=== PATIENT | male | born 1945 ===

== ENCOUNTER 2022-09-23 13:33 | Emergency (ER) | payer MEDICARE, SELFPAY ==
[2022-09-23] VITALS (11 sets, daily range): BP systolic 123–151; BP diastolic 55–99; PULSE 78–96; RESP 13–19; TEMP 36.4; O2SAT 96–99
--- NOTE | ~2022-09-23 | XR_ITS ---
EXAMINATION: XR chest 1V portable INDICATION: Dyspnea TECHNIQUE: Portable AP chest at 1434 hours COMPARISON: None available FINDINGS: There is mild atelectasis of the lung bases. No pleural effusion or pneumothorax. The heart size is normal. Median sternotomy wires and mediastinal surgical clips are seen, likely from prior c oronary artery bypass grafting. IMPRESSION: 1. Mild atelectasis of the lung bases. Reviewed, dictated and finalized at location A. [facility]
--- NOTE | 2022-09-23 13:39 | ECG_ITS ---
Measurements Intervals Outing Rate: 87 P: -77 NH: 163 QRS: 8 QRSD: 96 T: -6 QT: 397 QTc: 478 Interpretive Statements SINUS RHYTHM ST DEVIATION AND MODERATE T-WAVE ABNORMALITY, CONSIDER ANTERIOR ISCHEMIA [-0.1+ mV T WAVE IN V3/V4] NO PREVIOUS ECG AVAILABLE FOR COMPARISON Electronically Signed On 09-23-2022 16:10:04 FORESTRY HUNTER by Ham Ybarra M.D.
--- NOTE | 2022-09-23 14:25 | ED.GENADULT ---
HPI - General Adult General Chief complaint: Weakness Stated complaint: confusion X1 month, Time Seen by Provider: 09/23/22 13:56 History of Present Illness HPI narrative: 76-year-old male with past medical history of CAD status post CABG, CVA presents to our department for evaluation of 2 months of intermittent shortness of breath and confusion. Patient states that at times he feels short of breath at times feels confused there are no aggravating or alleviating factors. He has not experienced any chest pain. Unfortunately this is the first time patient has come to our hospital and we have no prior records for him. He is under if there is an exertional component to his symptoms. Patient is compliant with his medication regimen and came to our facility when there was too long of a wait at the hospital as he normally frequents. Related Data Allergies Allergy/AdvReac Type Severity Reaction Status Date / Time metformin Allergy Nausea and Verified 09/23/22 13:34 Vomiting Review of Systems Review of Systems: CONSTITUTIONAL: Denies fever, chills, or sweats. EYES: Denies visual changes, redness, or discharge. ENT: Denies rhinorrhea, congestion, sore throat, or otalgia. CARDIOVASCULAR: Denies chest pain, palpitations, or edema. RESPIRATORY: Denies cough or dyspnea. GASTROINTESTINAL: Denies abdominal pain, nausea, vomiting, or diarrhea. GENITOURINARY: Denies dysuria or hematuria. SKIN: Denies rash or itching. MUSCULOSKELETAL: Denies back pain, joint pain, or myalgia. NEUROLOGIC: Denies headache, numbness, or weakness. PSYCHIATRIC: Denies anxiety or depression. [facility] Family History Family History Father Asthma Heart disease Mother COPD (chronic obstructive pulmonary disease) Cancer Social History Social History Smoking status: Former smoker Additional smoking assessment comments: quit 13 years ago Exam Narrative: GENERAL: Well-appearing, well-nourished, and in no acute distress. Cachectic HEAD: Normocephalic, atraumatic. EYES: PERRLA and EOMI. ENT: Nares clear, no rhinorrhea or epistaxis. Mucous membranes moist. NECK: Supple. CHEST: Clear to auscultation. No respiratory distress. HEART: Regular rate and rhythm. No murmur heard. Normal peripheral pulses. ABDOMEN: Soft, nontender, nondistended, normal active bowel sounds. EXTREMITIES: Normal range of motion. No edema. SKIN: Warm, dry, no rash. NEURO: No focal deficits. Alert and oriented x3. PSYCH: Normal mood and affect. Course Vital Signs Vital signs: Vital Signs Temperature 97.6 F 09/23/22 13:43 Pulse Rate 95 09/23/22 13:43 Respiratory Rate 14 09/23/22 13:43 Blood Pressure 143/99 H 09/23/22 13:43 Pulse Oximetry 97 09/23/22 13:43 Oxygen Delivery Nasal Cannula 09/23/22 13:43 Oxygen Flow Rate 4.0 09/23/22 13:43 Temperature 97.6 F 09/23/22 13:43 Pulse Rate 78 09/23/22 17:42 Respiratory Rate 18 09/23/22 16:31 Blood Pressure 131/88 09/23/22 16:31 Pulse Oximetry 96 09/23/22 16:31 Oxygen Delivery Room Air 09/23/22 14:12 Oxygen Flow Rate 4.0 09/23/22 13:43 Medical Decision Making MDM Narrative Medical decision making narrative: Cardiac work-up initiated upon arrival. is informing that their main reason for the visit is patient's intermittent confusion at home and that she does not know where to go for help. Patient states intermittent shortness of breath that is not exertional in nature. He sees a print journalist regularly at outside hospital and the last visit was about a month ago. Patient and have been informed that there are no further cardiology interventions possible as he is out of spare parts . I have informed him and his of the elevated troponin as well as EKG changes but they are in agreement that they would prefer to go home and follow-up with her print journalist. Case
[2022-09-23 14:52] LABS: Anion Gap 12 mmol/L (8-16); Blood Urea Nitrogen 20 mg/dL (9-20); Calcium 9.2 mg/dL (8.4-10.2); Carbon Dioxide 22 mmol/L (22-30); Chloride 109 mmol/L (98-107); Estimated Glomerular Filt Rate 42; Glucose 147 mg/dL (65-110); Potassium 3.7 mmol/L (3.4-5.0); Sodium 143 mmol/L (137-145)
[2022-09-23 14:54] LABS: Basophils Percent Auto 0.4 % (0.2-1.2); Hemoglobin 13.6 g/dL (14.0-18.0); Immature Granulocyte Absolute 0.02 K/mm3 (0.00-0.031); Immature Granulocyte Percent A 0.3 % (0-0.5); Lymphocytes Absolute Auto 0.55 K/mm3 (0.9-3.2); Lymphocytes Percent Auto 7.8 % (18.3-44.2); Mean Corpuscular Hemoglobin 33.3 pg (26-34); Mean Platelet Volume 10.5 fl (7.4-10.4); Monocytes Absolute Auto 0.3 K/mm3 (0.1-0.6); Monocytes Percent Auto 4.4 % (2.6-8.5); Neutrophils Absolute Auto 6.1 K/mm3 (1.3-6.7); Neutrophils Percent Auto 87.1 % (45.5-73.1); Platelet Count Result 227 k/mm3 (150-375); Red Blood Count 4.08 M/mm3 (4.6-6.20); Red Cell Distribution Width 13.2 % (11.5-14.5)
[2022-09-23 15:12] LABS: NT Pro B Type Natriuretic Pept 3880 pg/mL (5-100); Troponin I 0.035 ng/mL (0.000-0.034)
[2022-09-23 15:20] LABS: Add Urine Microscopic? YES; Appearance Urine Clear (Clear); Bilirubin Urine 1+ (Negative); Blood Urine Negative (Negative); Color Urine Yellow (Yellow); Glucose Urine UA Negative (Negative); Ketones Urine Trace mg/dL (Negative); Leukocyte Esterase Ur Negative LEU/UL (Negative); Nitrate Urine Negative (Negative); Protein Urine 1+ mg/dL (Negative); Specific Grav Ur >= 1.030 (1.001-1.035)
[2022-09-23] MEDS: ASPIRIN 81 MG CHEWABLE TABLET 324 MG PO (15:22)
[2022-09-23 15:26] LABS: Influenza A QL RT-PCR Negative (Negative); Influenza B QL RT-PCR Negative (Negative); SARS-CoV-2 RNA PCR Negative
[2022-09-23 15:32] LABS: Mucus Urine Few /lpf; Squamous Epithelial Cell Urine Moderate /hpf (Few)
== END 2022-09-23 18:52 | disposition home or self-care (01) ==
PROVIDERS: Emergency Provider Emergency Medicine; PCP Family Medicine
DX: R41.0 Disorientation, unspecified (principal); R79.89 Other specified abnormal findings of blood chemistry; Z20.822 Contact with and (suspected) exposure to COVID-19; I25.10 Atherosclerotic heart disease of native coronary artery without angina pectoris; Z95.1 Presence of aortocoronary bypass graft; Z86.73 Personal history of transient ischemic attack (TIA), and cerebral infarction without residual deficits; Z87.891 Personal history of nicotine dependence; R94.31 Abnormal electrocardiogram [ECG] [EKG]; R06.02 Shortness of breath
CPT/HCPCS: 36415; 71045; 80048; 81001; 83880; 84484; 85025; 87086; 87636; 93005; 99284; A9270